=== PATIENT | female | born 1985 | race Asian ===

== ENCOUNTER 2019-09-28 20:18 | Emergency (ER) | payer OTHER ==
--- NOTE | 2019-09-28 20:43 | ED Physician Documentation ---
PD HPI ALTERED MENTAL STATUS - Stated complaint Stated Complaint: DIZZY - Chief complaint Chief Complaint: Neuro - History obtained from History obtained from: Patient (This is a very pleasant 34-year-old woman who the last 7 days has had spinning vertigo which is worse when she lays on her right side. She does not feel like it is any worse though if she just turns her head. There is a mild posterior headache/heaviness associated with it. She is very mildly nauseous. She has taken meclizine and done at home Calvin maneuver which were not helpful. She denies any other neurologic symptoms.) Review of Systems Constitutional: denies: Fever, Chills Ears: denies: Ear pain, Drainage/discharge Nose: denies: Rhinorrhea / runny nose, Congestion Throat: denies: Sore throat Cardiac: denies: Chest pain / pressure, Palpitations Respiratory: denies: Dyspnea, Cough PD PAST MEDICAL HISTORY - Past Medical History Past Medical History: Yes SHIP'S SURVEYOR: Ovarian cysts - Past Surgical History Past Surgical History: Yes /SHIP'S SURVEYOR: Other - Allergies Allergies/Adverse Reactions: Allergies Allergy/AdvReac Type Severity Reaction Status Date / Time No Known Drug Allergies Allergy Verified 09/28/19 20:31 - Social History Does the pt smoke?: No Smoking Status: Never smoker Does the pt drink ETOH?: No Does the pt have substance abuse?: No - Immunizations Immunizations are current?: No - POLST Patient has POLST: No PD ED PE NORMAL - Vitals Vital signs reviewed: Yes - General General: Alert and oriented X 3, No acute distress - HEENT HEENT: PERRL, EOMI - Neck Neck: Supple, no meningeal sign, No bony TTP - Neuro Neuro: Alert and oriented X 3, No motor deficit, No sensory deficit, Normal speech, Other (I do not appreciate any nystagmus, however she is not acutely dizzy when I am examining her. TMs look normal. Normal [id number] and [id number]-[id number] testing. Normal gait.) Results - Vitals Vitals: Vital Signs - 24 hr 09/28/19 20:26 Temperature 36.0 C L Heart Rate 83 Respiratory 14 Rate Blood Pressure 125/100 H O2 Saturation 97 Oxygen O2 Source Room air - Rads (name of study) Ct head Radiology: EMP read contemporaneously (normal) PD MEDICAL DECISION MAKING - ED course ED course: I went ahead and put her through the Calvin maneuver which was helpful starting with the right ear down. 34-year-old woman with what seems like mostly peripheral vertigo. There were 2 things that worried me a little bit. She did not have any nystagmus. That said she was not acutely dizziness at the time of the examination. She also has some fullness in the occiput. As such I did a CT scan of her head which was negative. She remained asymptomatic after Calvin maneuver in the department. Departure - Departure Disposition: 01 Home, Self Care Clinical Impression: Vertigo Condition: Good Record reviewed to determine appropriate education?: Yes Instructions: ED Vertigo Unspecified Comments: You can continue the meclizine. But I think if you do the Calvin maneuver and a slower more formal fashion it will be more helpful.
--- NOTE | 2019-09-28 21:34 | CT Report ---
Reason: vertigo Procedure Date: 09/28/2019 Accession Number: [id number] / [id number] Procedure: CT - HEAD WO CPT Code: Final Report FULL RESULT: EXAM: CT HEAD EXAM DATE: 09/28/2019 08:54 PM. CLINICAL HISTORY: Vertigo. COMPARISON: None. TECHNIQUE: Multiaxial CT images were obtained from the foramen magnum to the vertex. Reformats: Sagittal and coronal. IV contrast: None. In accordance with CT protocol optimization, one or more of the following dose reduction techniques were utilized for this exam: automated exposure control, adjustment of mA and/or KV based on patient size, or use of iterative reconstructive technique. FINDINGS: Parenchyma: No intraparenchymal hemorrhage. No evidence of mass, midline shift, or CT findings of infarction. Mccormack-white differentiation is distinct. Extraaxial Spaces: Normal for age. No subdural or epidural collections identified. Ventricles: Normal in size and position. Sinuses and Orbits: Imaged paranasal sinuses, orbits, and mastoids show no significant abnormality. Bones: No evidence of fracture or calvarial defect. Other: None. IMPRESSION: No acute intracranial findings. RADIA
[2019-09-28 21:45] VITALS: BP 143/96
== END 2019-09-28 21:50 | disposition home or self-care (01) ==
LOC: ED 20:18
DX: R42 Dizziness and giddiness (principal)
CPT/HCPCS: 70450; 99284

== ENCOUNTER 2020-03-13 20:10 | Emergency (ER) | payer OTHER ==
[2020-03-13 21:24] LABS: BASOPHILS % (AUTO) 0.4 %; EOSINOPHILS # (AUTO) 0.1 10^3/uL (0.0-0.7); EOSINOPHILS % (AUTO) 1.7 %; HGB - HEMOGLOBIN 13.7 g/dL (12.0-16.0); LYMPHOCYTES # (AUTO) 2.6 10^3/uL (1.5-3.5); LYMPHOCYTES % (AUTO) 31.1 %; MEAN CORPUSCULAR HEMOGLOBIN 30.4 pg (27.0-31.0); MEAN CORPUSCULAR HGB CONC 33.7 g/dL (32.0-36.0); MEAN PLATELET VOLUME 8.8 fL (7.9-10.8); MONOCYTES # (AUTO) 0.6 10^3/uL (0.0-1.0); MONOCYTES % (AUTO) 6.5 %; NEUTROPHILS # (AUTO) 5.1 10^3/uL (1.5-6.6); NEUTROPHILS % (AUTO) 59.6 %; PLT - PLATELET COUNT 310 10^3/uL (130-450); RED BLOOD COUNT 4.51 10^6/uL (4.20-5.40); WHITE BLOOD COUNT 8.5 x10^3/uL (4.8-10.8)
--- NOTE | 2020-03-13 21:30 | ED Physician Documentation ---
History of Present Illness - Stated complaint Stated Complaint: FAST HEARTRATE - Chief complaint Chief Complaint: Cardiac - History obtained from History obtained from: Patient - History of Present Illness Timing: How many weeks ago (8) - Additonal information Additional information: This is a very well-appearing 34-year-old female who presents to the emergency department for evaluation of palpitations and what she sometimes feels as a racing heart. She reports that she first noticed it about 2 months ago when she got into an argument with her mother. It has occurred intermittently since then sometimes with activity. However she comes to the ER today because for the last 3 or 4 nights she wakes up in the middle of the night and has a sensation of a fluttering heart. She has no chest pain or dyspnea. She does not feel lightheaded or dizzy. No syncopal episodes. Denies abdominal pain vomiting or diarrhea. Denies urinary symptoms. She is not on control has no unilateral leg. She has no history of DVT or blood clots. She queries this provider if perhaps it could be anxiety. I did discuss that anxiety can certainly cause heart palpitations but it is a diagnosis of exclusion Review of Systems Constitutional: reports: Reviewed and negative Ears: reports: Reviewed and negative Nose: reports: Reviewed and negative Throat: reports: Reviewed and negative Cardiac: reports: Palpitations. denies: Pedal edema, Calf pain GI: denies: Abdominal Pain, Abdominal Swelling, Nausea, Vomiting, Constipation, Diarrhea, Hematemesis : reports: LMP. denies: Dysuria, Frequency, Hesitancy, Vaginal bleeding Skin: reports: Lesions. denies: Rash, Abrasion (s) Musculoskeletal: denies: Neck pain, Back pain, Extremity pain, Joint pain, Joint swelling Neurologic: denies: Generalized weakness, Focal weakness, Numbness, Near syncope, Syncope, Seizure, Confused, Altered mental status, Headache, LOC Psychiatric: reports: Reviewed and negative Endocrine: reports: Reviewed and negative PD PAST MEDICAL HISTORY - Past Medical History Past Medical History: No FOOD AND BEVERAGE INTERN: Ovarian cysts - Past Surgical History Past Surgical History: Yes /FOOD AND BEVERAGE INTERN: Other - Allergies Allergies/Adverse Reactions: Allergies Allergy/AdvReac Type Severity Reaction Status Date / Time No Known Drug Allergies Allergy Verified 03/13/20 20:20 - Social History Does the pt smoke?: No Smoking Status: Never smoker Does the pt drink ETOH?: No Does the pt have substance abuse?: No - Immunizations Immunizations are current?: No - POLST Patient has POLST: No PD ED PE NORMAL - General General: Alert and oriented X 3, No acute distress - HEENT HEENT: Atraumatic - Neck Neck: Supple, no meningeal sign, No adenopathy - Cardiac Cardiac: RRR, No murmur - Respiratory Respiratory: No respiratory distress, Clear bilaterally - Abdomen Abdomen: Normal bowel sounds, Soft, Non tender, Non distended - Back Back: No CVA TTP, No spinal TTP - Derm Derm: Normal color, Warm and dry, No rash - Extremities Extremities: No deformity - Neuro Neuro: Alert and oriented X 3, 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, No motor deficit Eye Opening: Spontaneous Motor: Obeys Commands Verbal: Oriented GCS Score: 15 - Psych Psych: Normal mood, Normal affect Results - Vitals Vitals: Vital Signs - 24 hr 03/13/20 03/13/20 03/13/20 20:14 21:08 22:01 Temperature 36.5 C Heart Rate 82 87 78 Respiratory 14 19 16 Rate Blood Pressure 146/96 H 130/93 H 124/83 H Blood Pressure 130/93 H [Right] O2 Saturation 100 100 99 Oxygen O2 Source Room air - EKG (time done) 2030 Rate: Rate (enter#) (89) Rhythm: NSR [place]: Normal Intervals: Normal [place] QRS: Normal Ischemia: Normal ST segments Compare to prior EKG: Old EKG unavailable Computer interpretation: Agree with computer - Labs Labs: Laboratory Tests 03/13/20 03/13/20 03/13/20 21:15 21:15 21:15 WBC 8.5 RBC 4.51 Hgb 13.7 Hct 40.6 MCV 90.0 MCH 30.4 MCHC 33.7 RDW 12.0 Plt Count 310 MPV 8.8 Neut # (Auto) 5.1 Lymph # (Auto) 2.6 [place] # (Auto) 0.6 Eos # (Auto) 0.1 Baso # (Auto) 0.0 Absolute Nucleated RBC 0.00 Nucleated RBC % 0.0 Sodium 139 Potassium 3.7 Chloride 105 Carbon Dioxide 25 Anion Gap 9.0 BUN 15 Creatinine 0.7 Estimated GFR (MDRD) 96 Glucose 117 H Calcium 9.5 Total Bilirubin 0.6 AST 19 ALT 32 Alkaline Phosphatase 80 Troponin I High Sens < 2.3 L Total Protein 8.0 Albumin 4.5 Globulin 3.5 Albumin/Globulin Ratio 1.3 Lipase 31 Urine Color Urine Clarity Urine pH Ur Specific [place] Urine Protein Urine Glucose (UA) Urine Ketones Urine Occult Blood Urine Nitrite Urine Bilirubin Urine Urobilinogen Ur Leukocyte Esterase Urine RBC Urine WBC Ur Squamous Epith Cells Urine Bacteria Ur Microscopic Review Urine Culture Comments Urine HCG, Qual 03/13/20 21:25 WBC RBC Hgb Hct MCV MCH MCHC RDW Plt Count MPV Neut # (Auto) Lymph # (Auto) [place] # (Auto) Eos # (Auto) Baso # (Auto) Absolute Nucleated RBC Nucleated RBC % Sodium Potassium Chloride Carbon Dioxide Anion Gap BUN Creatinine Estimated GFR (MDRD) Glucose Calcium Total Bilirubin AST ALT Alkaline Phosphatase Troponin I High Sens Total Protein Albumin Globulin Albumin/Globulin Ratio Lipase Urine Color YELLOW Urine Clarity CLEAR Urine pH 6.5 Ur Specific [place] 1.025 Urine Protein NEGATIVE Urine Glucose (UA) NEGATIVE Urine Ketones NEGATIVE Urine Occult Blood LARGE H Urine Nitrite NEGATIVE Urine Bilirubin NEGATIVE Urine Urobilinogen 0.2 (NORMAL) Ur Leukocyte Esterase NEGATIVE Urine RBC 0-5 Urine WBC 0-3 Ur Squamous Epith Cells FEW Squamous Urine Bacteria Rare Ur Microscopic Review INDICATED Urine Culture Comments NOT INDICATED Urine HCG, Qual NEGATIVE PD MEDICAL DECISION MAKING - ED course Complexity details: reviewed results, re-evaluated patient, considered differential, d/w patient, d/w family ED course: 34-year-old female presents the emergency department for evaluation of palpitations that have been intermittent for much of the last 2 months. Here in the emergency department her EKG is a sinus rhythm without any ischemia. High- sensitivity troponin is negative.Patient is Wells and PERC criteria negative. Low suspicion for PE. CBC and electrolytes are unremarkable. Urine shows no signs of infection she is not . I do note the blood in the urine but she is finishing her menstrual cycle today. We discussed that palpitations can be accompanied by anxiety. She reassuringly has had no syncopal episodes nor does she have any neurological symptoms. I recommended close follow-up with the base physician. A Holter monitor may be indicated to rule out runs of tachycardia that we may not be seeing here while she is on her monitor. Otherwise a discussion to include anxiety management might also help with the palpitations. Departure - Departure Disposition: 01 Home, Self Care Clinical Impression: Palpitations with regular cardiac rhythm Condition: Stable Record reviewed to determine appropriate education?: Yes Instructions: ED Palpitations Comments: Your EKG today is normal. Your chest x-ray also shows a normal-sized heart. Your lab values are also unremarkable. Sometimes anxiety can cause a sensation of palpitations. I would like you to discuss this ED visit with your primary doctor to see if further testing is indicated. However like we did discuss I think that anxiety may be driving some of your sensations of palpitations. Before starting anxiety medications I do recommend that you get into a routine that includes a few minutes of meditation every day as well as perhaps taking 20 or 30-minute walk in the park. If at any point you develop chest pain, cannot breathe normally, or have fainting episodes then please return immediately to the ER
[2020-03-13 21:34] LABS: ALBUMIN 4.5 g/dL (3.2-5.5); ALBUMIN/GLOBULIN RATIO 1.3 (1.0-2.2); BILIRUBIN,TOTAL 0.6 mg/dL (0.2-1.0); CALCIUM 9.5 mg/dL (8.5-10.3); CREATININE 0.7 mg/dL (0.4-1.0)
[2020-03-13 21:47] LABS: BILIRUBIN,URINE NEGATIVE (NEGATIVE); GLUCOSE, URINE (UA) NEGATIVE (NEGATIVE); KETONES,URINE (UA) NEGATIVE (NEGATIVE); LEUKOCYTE ESTERASE, URINE NEGATIVE (NEGATIVE); NITRITE,URINE NEGATIVE (NEGATIVE); OCCULT BLOOD,URINE LARGE (NEGATIVE); PH,URINE 6.5 PH (5.0-7.5); PROTEIN,URINE NEGATIVE (NEGATIVE); UROBILINOGEN,URINE 0.2 (NORMAL) E.U./dL (NORMAL)
[2020-03-13 21:48] LABS: CLARITY,URINE CLEAR (CLEAR)
[2020-03-13 21:49] LABS: HCG UR QUAL NEGATIVE
[2020-03-13 21:55] LABS: BACTERIA,URINE Rare /HPF (None Seen); RBC,URINE 0-5 /HPF (0-5); SQUAMOUS EPITHELIAL CELL,UR FEW Squamous (<= Few)
[2020-03-13 22:02] VITALS: BP 124/83
--- NOTE | 2020-03-14 07:29 | XRAY Report ---
PROCEDURE: Chest 1 View X-Ray INDICATIONS: Chest Pain TECHNIQUE: One view of the chest was acquired. COMPARISON: None FINDINGS: Surgical changes and devices: None. Lungs and pleura: No pleural effusions or pneumothorax. Lungs are clear. Mediastinum: Mediastinal contours appear normal. Heart size is normal. Bones and chest wall: No suspicious bony lesions. Overlying soft tissues appear unremarkable. IMPRESSION: No acute cardiopulmonary disease process. Reviewed by: Sugar Rojas MD, PhD on 03/14/2020 7:27 AM PDT Approved by: Sugar Rojas MD, PhD on 03/14/2020 7:27 AM PDT Station ID: [id number]
== END 2020-03-13 22:10 | disposition home or self-care (01) ==
LOC: ED 20:10
DX: R00.2 Palpitations (principal)
CPT/HCPCS: 36415; 71045; 80053; 81001; 81003; 81025; 83690; 84484; 85025; 87086; 93005; 99284

== ENCOUNTER 2020-03-20 12:21 | Emergency (ER) | payer OTHER ==
--- NOTE | 2020-03-20 12:42 | ED Physician Documentation ---
PD HPI NECK PAIN - Stated complaint Stated Complaint: HEADACHE/NECK PX - Chief complaint Chief Complaint: General - History obtained from History obtained from: Patient - History of Present Illness Timing - onset: Today Timing - duration: Hours Timing - details: Gradual onset (awoke with left sided headache and lateral neck pain this morning and it has continued through the morning, waxing and waning, but not gone.), Still present, Waxing and waning Location: Lower, Left Quality: Sharp, Aching. No: Tearing Associated symptoms: No: Fever, Weakness, Numbness Worsened by: Movement (some worse pain with ROM of the neck, mostly flexion and turning to right.) Contributing factors: No: Lifting, Twisting, Trauma Similar symptoms before: Has not had sx before (had remote history of migraines/headaches when teen. No recent problems.) Recently seen: Clinic (2 days ago, had Plan B due to concern for poor coverage from her IM control.) Review of Systems Constitutional: denies: Fever, Chills Eyes: denies: Loss of vision, Decreased vision Ears: reports: Other (vertigo recently and intermittently, and seen by ENT, with MRI brain just few months ago.). denies: Loss of hearing Nose: denies: Rhinorrhea / runny nose, Congestion, Sinus pressure / pain Throat: denies: Sore throat Respiratory: denies: Cough GI: reports: Nausea. denies: Abdominal Pain, Vomiting : reports: Vaginal bleeding (mild cramping and spotting the past few days. Had prior depo shot and had not had periods for months. Now cramps and some spotting, so concerned her BC was not effective, so had Plan B (Uliprostil) 2 days ago.) Skin: denies: Rash, Lesions Neurologic: reports: Confused, Headache. denies: Focal weakness, Numbness, Near syncope, Altered mental status PD PAST MEDICAL HISTORY - Past Medical History Cardiovascular: None Respiratory: None Neuro: None, Migraines (remote history when teen) Endocrine/Autoimmune: None TOP TAPER MACHINE: Ovarian cysts - Past Surgical History Past Surgical History: Yes /TOP TAPER MACHINE: Other - Present Medications Home Medications: Ambulatory Orders Medication Instructions Recorded Confirmed Hydrocodone/Acetaminophen 1 each PO Q6H PRN #12 tablet 03/20/20 [Hydrocodone-Acetamin 5-325 mg] Ondansetron Odt [Zofran] 4 mg TL Q6H PRN #10 tablet 03/20/20 - Allergies Allergies/Adverse Reactions: Allergies Allergy/AdvReac Type Severity Reaction Status Date / Time No Known Drug Allergies Allergy Verified 03/20/20 12:31 - Social History Does the pt smoke?: No Smoking Status: Never smoker Does the pt drink ETOH?: No Does the pt have substance abuse?: No - Immunizations Immunizations are current?: No - POLST Patient has POLST: No PD ED PE NORMAL - Vitals Vital signs reviewed: Yes - General General: Alert and oriented X 3, No acute distress, Well developed/nourished - HEENT HEENT: Pharynx benign, Other (no tenderness on scalp/upper neck. Some muscular tenderness left upper side of neck near trapezius insertion. Some firmness of muscle c/w spasm. 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, No motor deficit, No sensory deficit, Normal speech, Other Eye Opening: Spontaneous Motor: Obeys Commands Verbal: Oriented GCS Score: 15 - Psych Psych: Normal mood, Normal affect Results - Vitals Vitals: Vital Signs - 24 hr 03/20/20 03/20/20 12:25 14:55 Temperature 36.6 C 37.0 C Heart Rate 76 73 Respiratory 16 18 Rate Blood Pressure 128/66 134/95 H O2 Saturation 90 L 95 Oxygen O2 Source Room air - Labs Labs: Laboratory Tests 03/20/20 14:58 POC Whole Bld Glucose 91 PD MEDICAL DECISION MAKING - ED course Complexity details: reviewed old records (MRI report from December from [facility] obtained, which showed normal brain MRI. ), re-evaluated patient, d/w patient Departure - Departure Disposition: 01 Home, Self Care Clinical Impression: Acute headache Qualifiers: Headache type: unspecified Intractability: not intractable Qualified Code(s): R51.9 - Headache, unspecified Condition: Stable Instructions: ED Cephalgia Unspecified Follow-Up: CHEMA BASILIO [Primary Care Provider] - Prescriptions: Hydrocodone/Acetaminophen [Hydrocodone-Acetamin 5-325 mg] 1 each PO Q6H PRN #12 tablet PRN Reason: Pain Ondansetron Odt [Zofran] 4 mg TL Q6H PRN #10 tablet PRN Reason: Nausea / Vomiting Comments: Your MRI from [facility] from December was normal. I looked at the plan B (Uliprostil) side effects and would include headache nausea spotting and cramping so I think your symptoms are just consistent with that. Stay well-hydrated. Eat regularly. Ondansetron if needed for nausea. Ibupro fen or Tylenol if needed for headache and pains. Add hydrocodone if needed for worse headache. Recheck if not resolved over the next few days. Discharge Date/Time: 03/20/20 15:09
[2020-03-20] MEDS ORDERED: ACETAMINOPHEN 325 MG TABLET PO STA (13:50)
[2020-03-20] MEDS ORDERED: ONDANSETRON ODT 4 MG TABLET TL STA (13:50)
[2020-03-20] MEDS ORDERED: NAPROXEN 250 MG TABLET PO STA (13:50)
[2020-03-20 14:56] VITALS: BP 134/95
== END 2020-03-20 15:09 | disposition home or self-care (01) ==
LOC: ED 12:21
DX: R51.9 Headache, unspecified (principal)
CPT/HCPCS: 99282; 99284; A9270; Q0162